=== PATIENT | female | born 1950 | race Caucasian/White ===

== ENCOUNTER 2017-04-04 11:00 | Inpatient (IN) | payer MEDICARE, BC ==
[~2017-04-04] VITALS: Ht 167.6 cm; Wt 94.0 kg
--- NOTE | ~2017-04-04 | DS ---
[facility] AGE: 66 Y [address] ROOM: [place] [address] LOCATION: [facility] ADMIT DATE: 04/08/2017 Discharge Summary DISCHARGE DATE: 04/10/2017 FAMILY PHYSICIAN: Marla Rockwell PA-C ATTENDING PHYSICIAN: Foster Moore PRIMARY DIAGNOSES: 1. Chronic left knee periprosthetic infection. 2. Chronic lateral dislocation of left patella. 3. Well-fixed left knee replacement. 4. 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 5. Dehiscence of left knee medial retinaculum. SECONDARY DIAGNOSES: 1. Essential hypertension. 2. Obesity. PROCEDURE PERFORMED: Irrigation and debridement of left knee including removal of well-fixed left knee replacement components (femoral and tibial components). Extensive synovectomy. Irrigation and debridement (including synovium, knee replacement components, and bone). Repair of medial retinacular dehiscence. Placement of articulating antibiotic impregnated cement spacers. HISTORY: The patient is a 66-year-old female, who underwent a primary left total knee arthroplasty with Dr. Dejan Pardo in [place] in June of 2016. She presented to us with chronic periprosthetic infection. Please refer to her outpatient clinic notes and her admission history and physical. HOSPITAL COURSE: The patient underwent the above specified procedure on 04/08/2017 without complications. Spinal anesthesia plus adductor canal block was utilized. She remained hemodynamically stable and neurovascularly intact throughout her entire hospital course. Her postoperative deep venous thrombosis prophylaxis consisted of Xarelto, early mobilization, and pneumatic compression devices. She received daily physical therapy for gait training and transfer training. On the date of discharge, the incision at the knee was healing well and showed no signs of infection. DISPOSITION: Home. DISCHARGE DIET: Regular. DISCHARGE ACTIVITY: She is to be strict nonweightbearing of the left lower extremity. There is to be no left knee range of motion. There is to be no PATIENT'S NAME: [facility] AGE: 66 Y [address] ROOM: [place] [address] LOCATION: [facility] ADMIT DATE: 04/08/2017 Discharge Summary DISCHARGE DATE: 04/10/2017 FAMILY PHYSICIAN: Marla Rockwell PA-C ATTENDING PHYSICIAN: Foster Moore dressing changes. She is to perform quadriceps isometric exercises and foot pumps hourly throughout the day. She is to notify Dr. Moore immediately if she experiences increased pain, fevers, chills, erythema, or drainage. DISCHARGE MEDICATIONS: 1. Intravenous antibiotics per Infectious Disease. 2. Xarelto 10 mg, take one tablet p.o. daily for DVT prevention. 3. Valium 5 mg, take 1/2 tablet to one tablet every 6 hours needed for muscle spasms. 4. Dilaudid 2 mg, take 1 to 2 tablets p.o. every 4 hours as needed for pain. She is then instructed to continue all of her preadmission medications as instructed by her Internal Medicine physician. FOLLOWUP: Followup appointment is to be with Dr. Moore one week subsequent to dismissal from the hospital for her initial postoperative evaluation and x- rays of the knee at that time. BROOKS FUNK FOR MD MARII GIANG/aixa /[id number] d: 04/25/17 0134 t: 05/09/17 0754, DISCHARGE SUMMARY
--- NOTE | ~2017-04-04 | CON ---
PATIENT'S NAME: [facility] AGE: 66 Y [address] ROOM: [place] [address] LOCATION: [facility] ADMIT DATE: 04/08/2017 Consultation DISCHARGE DATE: FAMILY PHYSICIAN: JOSEPH DICKENS PA-C ATTENDING PHYSICIAN: SYD CENTENO DATE OF CONSULTATION: 04/08/2017 REFERRING PHYSICIAN: Syd Centeno MD CONSULTING PHYSICIAN: Dr. Buckner. REASON FOR CONSULTATION: Medical management. HISTORY OF PRESENT ILLNESS: The patient is a 66-year-old female, postop day 0, for explantation of infected left total knee. At this point, the patient reports that she has had some increased pain and received a repeat block and had her opioid regimen upgraded and at this point feels okay. She reports no other concerns. REVIEW OF SYSTEMS: All systems have been reviewed and are negative aside from pertinent positives mentioned above. PAST MEDICAL HISTORY: 1. Essential hypertension. 2. Charcot foot, status post brace correction. 3. Seasonal allergies. 4. Postnasal drip. 5. Hypercholesterolemia. CURRENT MEDICATIONS: 1. Acetaminophen as needed. 2. Calcium carbonate. 3. Celecoxib. 4. Flonase. 5. Mucinex. 6. Xalatan. 7. Lisinopril/hydrochlorothiazide. 8. Ava-3 fatty acids. 9. Omeprazole. 10. Simvastatin. PATIENT'S NAME: [facility] AGE: 66 Y [address] ROOM: [place] [address] LOCATION: [facility] ADMIT DATE: 04/08/2017 Consultation DISCHARGE DATE: FAMILY PHYSICIAN: JOSEPH DICKENS PA-C ATTENDING PHYSICIAN: SYD CENTENO 11. Tramadol. PAST SURGICAL HISTORY: Significant for left total knee arthroplasty in June 2016 and an explant today. SOCIAL HISTORY: Negative for any history of ongoing toxic habits. FAMILY HISTORY: Reviewed and is noncontributory. PHYSICAL EXAMINATION: VITAL SIGNS: Blood pressure 95/50, saturating 97% on 2 L nasal cannula, temperature 97.9, pulse 61, and respirations 16. GENERAL: Well-developed well-nourished, middle-aged female, in no acute distress. NEUROLOGICAL: Exam is nonfocal. EYES: Exam shows pupils are equal and reactive to light. LYMPHATICS: Exam shows no cervical lymphadenopathy. ENDOCRINE: Exam shows no thyromegaly. LUNGS: Clear to auscultation. HEART: Rate is regular. GI: ABDOMEN is soft, nontender. : No costovertebral angle tenderness. VASCULAR: A 2+ pedal pulses. MUSCULOSKELETAL: Exam is deferred. LABORATORY DATA: Only positive result we have is synovial fluid with 20,000 wbcs. IMPRESSION/RECOMMENDATIONS: This is a 66-year-old female with: 1. Postop day 0 for explantation of left infected knee arthroplasty. At this point, we will recommend increasing the patient's bowel regimen that she is receiving with considerable doses of opioids. 2. Deep vein thrombosis prophylaxis has been ordered by Orthopedic Surgery. 3. Essential hypertension. We will hold in parameters for lisinopril/hydrochlorothiazide. 4. Nasal allergies. We will continue her on Flonase. 5. Additional management will depend on clinical course. Time dedicated to this patient encounter is 25 minutes. PATIENT'S NAME: MADDIE SEO [facility] AGE: 66 Y [address] ROOM: [place] [address] LOCATION: [facility] ADMIT DATE: 04/08/2017 Consultation DISCHARGE DATE: FAMILY PHYSICIAN: JOSEPH DICKENS PA-C ATTENDING PHYSICIAN: SYD CENTENO MD SHANE GRIFFITH/aixa /[id number] d: 04/09/17 0352 t: 05/19/17 1446, CONSULTATION REPORT
--- NOTE | ~2017-04-04 | OR ---
PATIENT'S NAME: MADDIE SEO [facility] AGE: 66 Y [address] ROOM: [address] [address] LOCATION: [facility] ADMIT DATE: 04/08/2017 OR/Procedure Report DISCHARGE DATE: 04/10/2017 FAMILY PHYSICIAN: Marla Rockwell PA-C ATTENDING PHYSICIAN: Foster Moore SURGEON: Foster Moore MD SAUSAGE TIER: DATE OF PROCEDURE: 04/08/2017 ADDENDUM: It should be noted that the physician's curatorial assistant played an active, integral role throughout this entire operation. By providing expert retraction, they greatly facilitated and expedited safe and effective exposure of the distal femur, proximal tibia and patella for preparation and implantation of the components. They were also actively involved in the patient's positioning, prepping and draping, as well as wound closure. MD MEREDITH GIANG/aixa /[id number] d: 04/26/17 1422 t: 05/09/17 0751, OPERATIVE SUMMARY
--- NOTE | ~2017-04-04 | CON ---
PATIENT'S NAME: MADDIE SEO [facility] AGE: 66 Y [address] ROOM: [place] [address] LOCATION: [facility] ADMIT DATE: 04/08/2017 Consultation DISCHARGE DATE: FAMILY PHYSICIAN: JOSEPH DICKENS PA-C ATTENDING PHYSICIAN: SYD CENTENO DATE OF CONSULTATION: 04/09/2017 INFECTIOUS DISEASE CONSULTATION REASON FOR EVALUATION: Infected knee. CHIEF COMPLAINT: The patient states that she is doing okay. HISTORY OF PRESENT ILLNESS: Ms. Seo is a very pleasant 66-year-old woman. She underwent knee replacement in June of last year. The knee itself performed very well afterward. However, she had ongoing issues with the incision, possible stitch abscess, area is opening up, etc. She did receive some oral antibiotics for this. Eventually, this resolved. Unfortunately after this, she did have swelling and a little bit of warmth to the knee. Her patella also dislocated. Various exercises did not help this. She had some knee taps, which were Synovasure positive. There was also elevated white blood cell count. She was admitted to the hospital and she had removal of the knee and placement of spacers yesterday. She is currently doing well. She was not on any antibiotics prior to her hospital admission and states she has not had any antibiotics since September. She had some occasional subjective fevers at home, but nothing all the time. There was no lymphangitis or anything like that from the leg. She was feeling generally okay. I am asked to evaluate. PAST MEDICAL HISTORY: Significant for high blood pressure, history of Charcot foot, and dyslipidemia. SOCIAL HISTORY: Negative for any current tobacco, alcohol, or drug use. FAMILY HISTORY: No unusual infections or immune disorders. REVIEW OF SYSTEMS: Pertinent positives include: MUSCULOSKELETAL: The patient with knee issues. PATIENT'S NAME: MADDIE SEO [facility] AGE: 66 Y [address] ROOM: [address] [address] LOCATION: [facility] ADMIT DATE: 04/08/2017 Consultation DISCHARGE DATE: FAMILY PHYSICIAN: JOSEPH DICKENS PA-C ATTENDING PHYSICIAN: SYD CENTENO CONSTITUTIONAL: The patient with occasional subjective fevers at home. As the patient denies any and all other symptoms, the remainder of a complete review of systems is otherwise negative. PHYSICAL EXAMINATION: GENERAL: The patient lying in bed, in no acute distress. HEENT: The patient is anicteric. No conjunctival lesions noted. EARS, NOSE, THROAT: Oropharynx has no thrush. CARDIOVASCULAR: Heart is regular rate and rhythm. RESPIRATORY: Breathing is easy and unlabored. LUNGS: Clear bilaterally. GASTROINTESTINAL: Abdomen is soft, normoactive bowel sounds are present, nontender. LYMPHATIC: No cervical or axillary lymphadenopathy. MUSCULOSKELETAL: The patient's left knee is in a brace and cannot be examined. INTEGUMENTARY: The patient's PICC line in the right arm looks okay. LABORATORY STUDIES: Are reviewed. Most pertinent here is a culture from the 26 of March, I believe, not in the [facility] of that knee with Staphylococcus epidermidis that is sensitive to clindamycin, sensitive to rifampin, sensitive to tetracycline, and vancomycin. Oxacillin resistant and quinolone resistant. OR cultures from here are pending. ASSESSMENT AND RECOMMENDATIONS: Infected total knee arthroplasty. She has undergone explant. She should undergo 6 weeks of antibiotics, which would give a stop date of May 20, 2017. At that time, antibiotics can be discontinued and she should be observed for a couple weeks and perhaps have a joint space aspiration to make sure that things are clean prior to reimplantation. Options at this point are to continue the rifampin and use either vancomycin or daptomycin. This will depend on whether she can infuse at home or requires outpatient infusions. If she can infuse at home, she should be on the vancomycin as it has a longer track record. I would aim for a trough of about 15. If she needs outpatient infusion, she can be on the daptomycin 6 mg/kg IV q.12h. If she is on the vancomycin, she will need a weekly CBC with differential, CMP, ESR, CRP, vancomycin trough faxed to our clinic. If daptomycin is chosen, she will need weekly CBC with differential, CMP, ESR, CRP, CPK faxed to our clinic. We will see her near the end of her antibiotic course in clinic either on the or the , whichever week we have Clinic at that time. Thank you allowing me to participate in the care of Ms. Seo. PATIENT'S NAME: MADDIE SEO [facility] AGE: 66 Y [address] ROOM: [address] [address] LOCATION: [facility] ADMIT DATE: 04/08/2017 Consultation DISCHARGE DATE: FAMILY PHYSICIAN: JOSEPH DICKENS PA-C ATTENDING PHYSICIAN: SYD CENTENO MD MARY NGUYEN/aixa /[id number] d: t: 04/10/17 0129, CONSULTATION REPORT
--- NOTE | ~2017-04-04 | OR ---
PATIENT'S NAME: [facility] AGE: 66 Y [address] ROOM: [place] [address] LOCATION: [facility] ADMIT DATE: 04/08/2017 OR/Procedure Report DISCHARGE DATE: FAMILY PHYSICIAN: JOSEPH DICKENS PA-C ATTENDING PHYSICIAN: SYD CENTENO SURGEON: Syd Centeno MD PROCESSING CLERK: 1. BROOKS Atkinson. 2. Rashel Jewell CST/SURVEY RESEARCH ASSOCIATE. DATE OF PROCEDURE: 04/08/2017 PREOPERATIVE DIAGNOSES: Chronic left knee periprosthetic infection. Chronic lateral dislocation of left patella. Well-fixed left knee replacement. Non- resurfaced left patella with severe patella articular cartilage degeneration. Dehiscence of left knee medial retinaculum. POSTOPERATIVE DIAGNOSIS: Chronic left knee periprosthetic infection. Chronic lateral dislocation of left patella. Well-fixed left knee replacement. Non- resurfaced left patella with severe patella articular cartilage degeneration. Dehiscence of left knee medial retinaculum. PROCEDURES PERFORMED: Irrigation and debridement of left knee including removal of well-fixed left knee replacement components (femoral and tibial components). Extensive synovectomy. Irrigation and debridement (including synovium, knee replacement components, and bone). Repair of medial retinacular dehiscence. Placement of articulating antibiotic impregnated cement spacers. DRAINS: None. SPECIMENS: Synovial fluid for cell count, Gram-stain, and routine cultures. ANESTHESIA: Spinal anesthesia plus adductor canal block. EXPLANTS: Feliciano Persona posterior cruciate ligament retaining femoral component, tibial tray, and tibial polyethylene insert. IMPLANTS: Biomet molded antibiotic impregnated femoral and tibial cement spacers composed of a total of 4 batches of Feliciano Palacos cement containing gentamicin, to which a total of 8 grams of vancomycin were added. Feliciano antibiotic impregnated dissolvable calcium sulfate pellets (20 mL to which a total of 2 grams of vancomycin powder and 2.4 grams of Tobramycin powder had been added). INDICATION FOR PROCEDURE: The patient is a 66-year-old female who underwent a primary left total knee arthroplasty with Dr. Dejan Pardo at [facility] PATIENT'S NAME: [facility] AGE: 66 Y [address] ROOM: [place] [address] LOCATION: N ADMIT DATE: 04/08/2017 OR/Procedure Report DISCHARGE DATE: FAMILY PHYSICIAN: JOSEPH DICKENS PA-C ATTENDING PHYSICIAN: SYD CENTENO [facility] in June 2016. She presents with a chronic periprosthetic infection. Cultures have been positive for Staphylococcus epidermidis. She has a non-resurfaced laterally dislocated patella and a palpable defect in her medial retinaculum. Risks, benefits, limitations, and alternatives to two-stage revision arthroplasty have been thoroughly reviewed. She understands that this stage will consist of removal of well-fixed components, extensive debridement, and placement of antibiotic-impregnated cement spacers. She understands that this stage will be followed by 6 weeks of intravenous antibiotics prior to reimplantation. Risks, benefits, limitations, and alternatives to this procedure have been thoroughly reviewed. We have specifically discussed the potential for persistent and/or recurrent infection, deep venous thrombosis, pulmonary embolism, mortality, neurovascular complications, blood transfusion risks, and potential need for further revision. Informed consent has been granted. DESCRIPTION OF PROCEDURE: The patient positioned supine after administration of regional anesthesia. A well-padded pneumatic tourniquet was placed around the left proximal thigh. The left lower extremity was prepped and draped with vigilant sterile technique. Examination under anesthesia demonstrated a large effusion. There was mild erythema. There was a well-healed midline anterior scar. There was 4 mm of medial collateral ligament laxity and 3 mm of lateral collateral ligament laxity. There was a grade 2 posterior drawer. There was significantly increased anteroposterior translation at 90 degrees of flexion. The left lower extremity was elevated for exsanguination. The left knee was approached through a longitudinal midline incision. The patella was noted to be laterally dislocated. There was a defect in the medial retinaculum bridged by a thin layer of loose connective tissue. 100 mL of purulent fluid was aspirated from the joint. The medial arthrotomy was performed. There was an abundant amount of amorphous white colored exudate. A thorough synovectomy was performed. There was global full-thickness loss of articular cartilage from the patella. Tibial and femoral components were noted to be well-fixed. These were removed with thin osteotomes. All cement was removed from the distal femur and proximal tibia. The posterior cruciate ligament was noted to be attenuated. There was a fair amount of soft bone beneath the tibial and femoral implants. This was thoroughly irrigated and debrided. Antibiotic impregnated cement spacers were fabricated. These consisted of 4 separate batches of Palacos cement containing gentamicin. Two grams of vancomycin were added to each of the batches. After the appropriate sized articulating spacers were fabricated, these were glued in place with an additional batch of Palacos cement to which 2 grams of vancomycin had been added. These were loosely cemented. The above specified dissolvable beads were fabricated and placed into the medial and lateral gutters. Additional cement (with the above specified antibiotics) was fabricated into a spacer for PATIENT'S NAME: MADDIE SEO [facility] AGE: 66 Y [address] ROOM: [address] [address] LOCATION: [facility] ADMIT DATE: 04/08/2017 OR/Procedure Report DISCHARGE DATE: FAMILY PHYSICIAN: JOSEPH DICKENS PA-C ATTENDING PHYSICIAN: SYD CENTENO the suprapatellar pouch. It should be noted that the joint space was irrigated with 6 L of bacteriostatic pulsatile saline lavage after extraction of the components and prior to placement of the spacers. The arthrotomy was closed with multiple [id number] interrupted #2 PDS sutures followed by a running #2 PDS Quill suture. Subcutaneous tissues were thoroughly re-irrigated and subsequently reapproximated with superficial buried interrupted 0 PDS suture, followed by running subcuticular 3-0 Monocryl suture, followed by Dermabond and Steri-Strips, followed by a Mepilex dressing and a compressive Hosea wrap. There were no complications. MD MEREDITH GIANG/aixa /[id number] d: 04/09/17 0339 t: 04/16/17 1744, OPERATIVE SUMMARY
[2017-04-04] MEDS ORDERED: XALATAN2.5 ML OPHTH (12:46)
[2017-04-04] MEDS ORDERED: CELEBREX200 MG PO (12:47)
[2017-04-04] MEDS ORDERED: ZOCOR40 MG PO (12:47)
[2017-04-04] MEDS ORDERED: LISINOPRIL-HCT1 EACH PO (12:47)
[2017-04-04] MEDS ORDERED: PRILOSEC20 MG PO (12:48)
[2017-04-04] MEDS ORDERED: CALCIUM 600 +1 EAC5 PO (12:48)
[2017-04-04] MEDS ORDERED: OMEGA 3 FISH O1 EACH PO (12:49)
[2017-04-04] MEDS ORDERED: FLONASE 50 MCG/16 GM NOSE (12:50)
[2017-04-04] MEDS ORDERED: MUCINEX600 MG PO (12:50)
[2017-04-04] MEDS ORDERED: ULTRAM50 MG PO (12:51)
[2017-04-04] MEDS ORDERED: TYLENOL EXTRA500 MG PO (12:51)
--- NOTE | 2017-04-09 04:23 | NUR ---
Patient is alert and oriented x3, was drowsy initially when returned from surgery, patients block was not effective and ended up with pain issue right after surgery was over, recieved a femoral block to help with pain control, patient has been slightly drowsy this shift, has immobilizer in place to the left leg non-weight bearing to the left leg, pain has been under control, at around 0330 patients BP's dropped to 80s over 50s, notified [facility] currently getting a litter bolus of NACL patient is alert and non-symptomatic, is on IV antibiotics and is to have a PICC line placed at some point, csm with in normal limits, dressing clean dry and intact
[2017-04-09 05:27] LABS: HEMATOCRIT 28.6 % (33.0-46.0); HEMOGLOBIN 8.8 g/dL (10.0-15.0)
[2017-04-09 05:45] LABS: CREATININE 0.6 mg/dL (0.5-1.1); ESTIMATED GFR (MDRD EQUATION) > 60
[2017-04-09] MEDS ORDERED: NYSTATIN100000 UNI PO (15:50)
--- NOTE | 2017-04-09 16:42 | NUR ---
Significant Event: PT ALERT AND ORIENTED. UP WITH 1 ASSIST TO THE COMMODE. USES WALKER. NON WEIGHT BEARING TO LT LEG. IMMOBILIZER ON ICE TO KNEE. LAST DILAUDID WAS GIVEN AT 1617. PICC LINE PLACED THIS AFTERNOON IN RT ANTICUB. PT NEEDS TO GO HOME ON IV ANTIBIOTICS. UNSURE OF DISCHARGE DATE. FRIEND IN THE ROOM WITH PT. CAN GIVE ALL INFO ON PT TO THE FRIEND IF NEEDED. IV VANCO EVERY 8 HOURS. TYLENOL AT 1700. LOW BLOOD PRESSURE LAST NIGHT. B/P MEDS HELD TODAY. B/P BETTER THIS AFTERNOON. Follow up:
--- NOTE | 2017-04-09 16:56 | NUR ---
SEVERAL ATTEMPTS MADE THROUGHOUT DAY TO SEE PATIENT BUT SHE WAS NOT IN HER ROOM OR WAS GETTING THERAPY EACH TIME I TRIED TO SEE HER. SHE JUST RETURNED FROM GETTING PICC PLACED. SPOKE TO PATIENT AND HER SISTER AT THE BEDSIDE. INTRODUCED CM AND OUR ROLE. PATIENT LIVES IN OWN HOME WITH SPOUSE AND SHE HAS A SISTER THAT IS AN HOTEL SERVER THAT LIVES NEAR BY. PATIENT IS AWARE THAT SHE WILL NEED TO RECEIVE IV ANTIBIOTICS. AND I SPOKE TO HER ABOUT THE OPTIONS SHE HAS. WHICH INCLUDE, HOME INFUSION, GETTING ANTIBIOITCS AN OUTPT, AND SB AT [facility]. PATIENT NEEDS TO BE SEEN BY ID BEFORE I CAN MAKE ANY ARRANGEMENTS FOR HER. PATIENT WOULD PREFERE TO GET THE IV ANTIBIOTICS FROM HOME INFUSION IF HER INSURANCE WILL COVER THIS. I ATTEMPETED TO CONTACT THE [facility] TO SEE WHO WOULD PROVIDE HOME INFUSION AND HHC AND IF IT IT IS AN OPTION. HAD TO LEAVE A MESSAGE FOR MIRELLA TO CONTACT ME. ([phone]) IT THE CONTACT NUMBER FOR [facility].
--- NOTE | 2017-04-10 04:35 | NUR ---
Patient is alert and oriented x3, very pleasant and cooperative, pain has been under control, csm with in normal limits pedal pulse is thready, has immobilizer in place to the left leg, non-weight bearing to that leg, dressing clean dry and intact, ice in place, up to bedside commode with one assist, picc line in upper right arm, has IV vanco this shift, has rested well
[2017-04-10 06:04] LABS: CREATININE 0.5 mg/dL (0.5-1.1)
[2017-04-10 06:26] LABS: HEMATOCRIT 29.7 % (33.0-46.0); HEMOGLOBIN 9.4 g/dL (10.0-15.0)
--- NOTE | 2017-04-10 15:10 | NUR ---
Talked with BROOKS Mchugh for hospitalist service this morning and with patient and started referral to [facility] in [place] and [facility]. Still waiting for [facility] to call me back with munoz estimates of 2 IV antibx that ID physician recommended. Hoping pt can get IV antibx at 6pm tonight and still go home if [facility] can get her IV antibx to her yet tonight and start HH/HIP for am dose, otherwise will stay tonight and get IV antibx at 6am and then go home and start HH/HIP for pm dose tomorrow.
--- NOTE | 2017-04-10 17:23 | NUR ---
Received call back from [facility], pt secondary insurance [facility] will cover either the daptomycin or vancomycin at 100%. Talked with patient, she would rather do the Daptomycin once a day than Vancomycin twice a day. Talked with BROOKS Mchugh and she wrote orders for Home Infusion/HH and to give first dose Daptomycin here now. Called [facility] back and faxed final orders, they will assistant research scientist the medicine and supplies out to patient in the morning. Called [facility] and faxed final orders and face to face sheet signed by Dr Anderson. They will admit pt to HH/HIP services tomorrow afternoon. Talked with patient and friend at bedside, she is agreeable to plan. Will go home after Daptomycin dose given here.
[2017-04-10] MEDS ORDERED: CUBICIN (NON-F500 MG IV (18:09)
[2017-04-10] MEDS ORDERED: NEURONTIN300 MG PO (18:11)
[2017-04-10] MEDS ORDERED: MIRALAX17 GM PO (18:12)
[2017-04-10] MEDS ORDERED: XARELTO10 MG PO (18:13)
[2017-04-10] MEDS ORDERED: DILAUDID 2MG(HYD2 MG PO (18:14)
[2017-04-10] MEDS ORDERED: VALIUM5 MG PO (18:14)
[2017-04-10] MEDS ORDERED: FLORASTOR250 MG PO (18:15)
--- NOTE | 2017-04-10 18:31 | NUR ---
Significant Event: PT ALERT AND ORIENTED. 1 ASSIST TO TRANSFER. NON WEIGHT BEARING TO LT LEG. PT WILL BE DISCHARGED TONIGHT AFTER ANTIBOTIC DOSE. PICC LINE DRESSING CHANGED. FRIEND IN THE ROOM WITH PT. DILAUDID FOR PAIN. VOIDS WELL BM TODAY. Follow up:
--- NOTE | 2017-04-10 23:57 | NUR ---
Pt received dose of antibiotic. PICC in place with good blood return. Pt's pain tolerable per patient. VSS. Ice packs given. Pt's valuables returned. Dismissal paperwork signed. Pt has prescriptions. Transport takes patient at [address] in wheelchair. Pt verbalizes understanding and has no further questions.
== END 2017-04-10 19:25 | disposition home health service (06) | DRG 857 ==
LOC: G3N 04-08 09:19
PROVIDERS: Physician Assistant; ADMIT Orthopaedic Surgery
DX: T81.4XXA Infection following a procedure, initial encounter (principal); T81.31XA Disruption of external operation (surgical) wound, not elsewhere classified, initial encounter; B95.8 Unspecified staphylococcus as the cause of diseases classified elsewhere; I10 Essential (primary) hypertension; M17.2 Bilateral post-traumatic osteoarthritis of knee; Z88.8 Allergy status to other drugs, medicaments and biological substances; J30.9 Allergic rhinitis, unspecified; E78.00 Pure hypercholesterolemia, unspecified; Z96.652 Presence of left artificial knee joint; E66.9 Obesity, unspecified; Z68.32 Body mass index [BMI] 32.0-32.9, adult; Z71.3 Dietary counseling and surveillance
CPT/HCPCS: C1713; C1751; C1776; J0690; J0878; J1170; J1885; J2001; J2250; J2550; J2795; J3010; J3370; J7030; J7040; J7050; J7120